=== PATIENT | female | born 1975 | race Caucasian/White ===

== ENCOUNTER 2022-03-28 15:30 | Outpatient (RCR) | payer OTHER, SELFPAY | END 2022-05-14 13:46 | disposition home or self-care (01) | PROVIDERS: PCP Family Medicine; Visit Provider Orthopaedic Surgery Sports Medicine | DX: M17.12 Unilateral primary osteoarthritis, left knee (principal); Z51.89 Encounter for other specified aftercare | CPT/HCPCS: 97110; 97112; 97116; 97162 ==

== ENCOUNTER 2023-03-03 14:10 | Emergency (ER) | payer BC, SELFPAY ==
[2023-03-03 14:36] VITALS: BP 114/76; PULSE 82; RESP 16; TEMP 36.2; O2SAT 98; BMI 41.2
[2023-03-03 15:19] LABS: Appearance Urine Clear (Clear); Bilirubin Urine Negative (Negative); Blood Urine Trace-lysed (Negative); Color Urine Yellow (Yellow); Glucose Urine Negative (Negative); Ketones Urine Negative (Negative); Leukocyte Esterase Urine Negative (Negative); Nitrite Urine Negative (Negative); Protein Urine Negative (Negative); Specific Gravity Urine <= 1.005 (1.000-1.030); Urobilinogen Urine 0.2 (0.2-1.0)
[2023-03-03 15:29] LABS: RBC Urine 0-2 (0-2); WBC Urine 0-2 (0-5)
--- NOTE | 2023-03-03 16:15 | ED_ITS ---
HPI - General Adult General Date Seen: 03/03/23 Chief complaint: Urogenital Problems, Female Stated complaint: UTI Time Seen by Provider: 03/03/23 15:51 Source: patient Mode of arrival: ambulatory Limitations: no limitations History of Present Illness HPI narrative: Patient is a 48-year-old who presents with a couple of days of mid lower back pain. She says that she can barely go from sitting to standing because it is painful to move. She denies radiating pain. She says this has happened ?5 or 6 times before and it has always been a bladder infection. She denies any urinary symptoms such as dysuria, frequency, urgency, however she says in the past that she has never had those symptoms either. She says that she has been cared for here when she has had these symptoms, she brought up a previous visit where she had an ovarian cyst, back pain, and was told she had a UTI. However review of that note shows that she presented with abdominal pain, she did have a 3.5 cm ovarian cyst but also had an incidentally diagnosed pneumonia which was treated. There was no evidence of UTI. In fact, I do not see any previous urine cultures here in our system. She denies fevers or chills. She has been taking ibuprofen and Tylenol but says they do not help. She does have a history of fibromyalgia as well as previous controlled substance contract. In trying to review her records on the [place] prescription database, I am not able to find her. Related Data Home Medications Medication Instructions Recorded Confirmed albuterol sulfate 90 mcg/actuation 2 inhalation PRN 01/29/22 01/29/22 aerosol inhaler bupropion HCl 150 mg 24 hr tablet, 150 mg PO DAILY 01/29/22 01/29/22 extended release omeprazole 20 mg capsule,delayed 20 mg PO QDAY 01/29/22 01/29/22 release trazodone 50 mg tablet 50 mg PO .Bedtime 01/29/22 01/29/22 tretinoin 0.025 % topical cream 1 applic topical ONCE 01/29/22 01/29/22 venlafaxine 75 mg capsule,extended 3 mg PO DAILY 01/29/22 01/29/22 release 24 hr fluticasone propionate 115 g inhalation 01/31/22 01/31/22 mcg-salmeterol 21 mcg/actuation HFA inhaler (Advair HFA) levocetirizine 5 mg tablet 5 mg PO QDAY 01/31/22 01/31/22 mupirocin 2 % topical ointment g topical 01/31/22 01/31/22 pantoprazole 40 mg tablet,delayed tab PO 01/31/22 01/31/22 release sucralfate 1 gram tablet 1 g PO 01/31/22 01/31/22 Previous Rx's Medication Instructions Recorded lidocaine 5 % topical patch 1 patch topical DAILY #15 ea 03/03/23 Allergies Allergy/AdvReac Type Severity Reaction Status Date / Time Erythromycin Allergy Intermediate GI upset Uncoded 01/31/22 08:39 Penicillin Allergy Intermediate Hives Uncoded 01/31/22 08:39 Sulfamethoxazole / Allergy Intermediate pain Uncoded 01/31/22 08:39 trimethoprim symptoms Review of Systems Status of ROS: Reports: 10 or more systems reviewed and unremarkable except as noted in History and below [facility] Medical History Skin problem ?L98.9 - Disorder of the skin and subcutaneous tissue, unspecified (ICD-10) Anxiety ?F41.9 - Anxiety disorder, unspecified (ICD-10) Depression ?F32.A - Depression, unspecified (ICD-10) Asthma ?J45.909 - Unspecified asthma, uncomplicated (ICD-10) GERD (gastroesophageal reflux disease) ?K21.9 - Gastro-esophageal reflux disease without esophagitis (ICD-10) Shortness of breath ?R06.02 - Shortness of breath (ICD-10) Pain in pelvis ?R10.2 - Pelvic and perineal pain (ICD-10) Encounter for pre-operative examination ?Z01.818 - Encounter for other preprocedural examination (ICD-10) Encounter for postoperative care ?Z48.89 - Encounter for other specified surgical aftercare (ICD-10) Acute bronchospasm ?J98.01 - Acute bronchospasm (ICD-10) Abdominal pain ?R10.9 - Unspecified abdominal pain (ICD-10) Surgical History Hx of LASIK ?Z98.890 - Other specified postprocedural states (ICD-10) History of cholecystectomy (03/06/16) ?Z90.49 - Acquired absence of other specified parts of digestive tract (ICD- 10) Social History Smoking Status: Former smoker Do you use any of these nicotine containing products: None Second hand tobacco smoke exposure: No How often do you have a drink containing alcohol: never AUDIT-C Alcohol total score: 0 Non-prescribed substance use: denies use Exam Narrative: Exam Narrative: Vital signs as noted above. In general, an alert, nontoxic woman. Head: Normocephalic, atraumatic. Eyes: Pupils are equal reactive. Extraocular movements are full. Conjunctivae are normal. ENT: Mucous membranes are moist. Neck: Supple without lymphadenopathy. Heart: Regular rate and rhythm. No murmur or rub. Lungs: Clear bilaterally. No increased work of breathing, crackles or wheezes. Abdomen: Soft and nontender. Exam limited by body habitus. Back: She has tenderness to palpation over the lumbar region diffusely. She does not have CVA tenderness. Extremities: Well perfused. Pulses intact. Neurologic: Patient is alert and oriented to person and place. Speech is fluent. Face is symmetric. Moves all extremities equally. Affect: Anxious. Skin: Warm and dry. Well perfused. Const: Vital Signs, click to edit/add: Vital Signs - 24 hr 03/03/23 14:36 Temperature 97.1 F L Pulse Rate [Right Pulse Oximeter] 82 Respiratory Rate 16 Blood Pressure [Ri ght Upper Arm] 114/76 Pulse Oximetry 98 Oxygen Delivery Me thod Room Air Documenting provider has reviewed patient's vital signs: yes Course Course Hospital Course: A urinalysis done here is negative, no nitrites, 0-2 red cells and 0-2 white cells, no bacteria. I have reviewed with her that her pain seems more consistent with mechanical back pain, that a bladder infection would not typically cause isolated back pain that is worsened with movement, particularly in the absence of any urinary symptoms, and with a completely negative UA I am hesitant to attribute her symptoms to urinary tract infection. I did offer to do a little more workup to see if there is any other evidence of infection. Pain is not an area that would be consistent with pyelonephritis. She has not had any systemic complaints, so my suspicion for an infectious cause is relatively low, but will go ahead and check some labs, give some Toradol and 0.5 mg of Ativan. Patient feels improved. Her labs are entirely normal, white blood cell count is 6.3 with a normal diff, metabolic panel is normal, CRP is less than 0.5 and lactate is 0.8. I have reassured her I do not see any evidence of infections as a cause for her symptoms. I will send a urine culture for her, but reviewed that I think UTI is again very unlikely cause for her symptoms. I prescribed some Flexeril, lidocaine patches in addition to her the ibuprofen and Tylenol at I recommended. If not improving over the next week or so, follow-up with primary care. If at any time she feels acutely worse, develops new symptoms such as fever, vomiting, weakness or numbness etcetera, return to the emergency department. Vital Signs Vital signs: Initial Vital Signs Temperature 97.1 F L 03/03/23 14:36 Temperature Source Temporal Artery Scan 03/03/23 14:36 Pulse Rate 82 03/03/23 14:36 Pulse Rhythm Regular 03/03/23 14:36 Respiratory Rate 16 03/03/23 14:36 Blood Pressure 114/76 03/03/23 14:36 Blood Pressure Mean 88 03/03/23 14:36 Blood Pressure Position Sitting 03/03/23 14:36 Pulse Oximetry 98 03/03/23 14:36 Oxygen Delivery Method Room Air 03/03/23 14:36 Vital Signs Temperature 97.1 F L 03/03/23 14:36 Pulse Rate 82 03/03/23 14:36 Respiratory Rate 16 03/03/23 14:36 Blood Pressure 114/76 03/03/23 14:36 Pulse Oximetry 98 03/03/23 14:36 Oxygen Delivery Method Room Air 03/03/23 14:36 Temperature 97.1 F L 03/03/23 14:36 Pulse Rate 82 03/03/23 14:36 Respiratory Rate 16 03/03/23 14:36 Blood Pressure 114/76 03/03/23 14:36 Pulse Oximetry 98 03/03/23 14:36 Oxygen Delivery Method Room Air 03/03/23 14:36 Medical Decision Making Lab Data Labs: Lab Results 03/03/23 03/03/23 Range/Units 15:05 16:36 WBC 6.35 (4.50-11.00) K/uL RBC 4.77 (4.00-5.20) m/uL Hgb 12.3 (12.0-16.0) gm/dL Hct 39.3 (33.0-51.0) % MCV 82 (80-100) fL MCH 26 (26-34) pg MCHC 31 L (32-36) gm/dL RDW Coeff of Latricia 14.6 (11.5-15.5) % Plt Count 304 (140-440) K/uL Neut % (Auto) 51.1 (42.0-72.0) % Lymph % (Auto) 37.0 (20-44) % [place] % (Auto) 8.2 (0.0-11.0) % Eos % (Auto) 2.4 (0.0-7.0) % Baso % (Auto) 1.1 (0.0-3.0) % Neut # (Auto) 3.25 (1.7-7.0) K/uL Lymph # (Auto) 2.35 (0.90-2.90) K/uL [place] # (Auto) 0.50 (0.00-0.90) K/UL Eos # (Auto) 0.15 (0.00-0.50) K/uL Baso # (Auto) 0.07 (0.00-0.30) K/uL Abs Immat Gran (auto) 0.01 (0.00-0.30) K/uL Imm/Tot Granulo (auto) 0.2 % Sodium 135 (135-149) mmol/L Potassium 4.4 (3.6-5.1) mmol/L Chloride 106 (96-114) mmol/L Carbon Dioxide 22 (20-32) mmol/L Anion Gap 7 (7-15) mEq/L BUN 10 (5-24) mg/dL Creatinine 0.8 (0.5-1.5) mg/dL Estimated Creat Clear 75.07 Estimated GFR 91 ml/min Glucose 74 (60-115) mg/dL Lactate 0.8 (0.5-1.9) mmol/L Calcium 8.2 L (8.4-10.6) mg/dL C-Reactive Protein < 0.5 L (0.5-1.0) mg/dL Urine Color Yellow (Yellow) Urine Appearance Clear (Clear) Urine pH 6.0 (5.0-8.5) Ur Specific [place] <= 1.005 (1.000-1.030) Urine Protein Negative (Negative) Urine Glucose (UA) Negative (Negative) Urine Ketones Negative (Negative) Urine Blood Trace-lysed A (Negative) Urine Nitrite Negative (Negative) Urine Bilirubin Negative (Negative) Urine Urobilinogen 0.2 (0.2-1.0) Ur Leukocyte Esterase Negative (Negative) Urine RBC 0-2 (0-2) Urine WBC 0-2 (0-5) Ur Squamous Epith Cells None (None-Few) Urine Bacteria None (None) Discharge Plan Discharge Clinical Impression: Low back pain Patient Disposition: Home, Self-Care Condition: Stable Instructions: Acute Low Back Pain (ED) Additional Instructions: Labs today are all reassuring and do not suggest an infectious cause for your symptoms. I will request a culture of your urine we will call you if there is anything that needs to be treated. In the meantime, I would recommend a combination of ibuprofen 400 mg plus Tylenol 1000 mg 3 times daily with food. You can use a muscle relaxer as needed. Ice may also be helpful. I also prescribed some lidocaine patches which you can apply at the area of discomfort on your back. If you are worsening, develops new symptoms such as fever vomiting, return to the emergency department. Otherwise, follow up with primary care if not gradually improving over the next week or so. Prescriptions: New lidocaine 5 % adhesive patch,medicated 1 patch topical DAILY Qty: 15 0RF Rx Instructions: leave on most painful area for up to 12 hrs No Action bupropion HCl 150 mg tablet extended release 24 hr 150 mg PO DAILY trazodone 50 mg tablet 50 mg PO .Bedtime venlafaxine 75 mg capsule,extended release 24hr 3 mg PO DAILY tretinoin 0.025 % cream 1 applic topical ONCE omeprazole 20 mg capsule,delayed release(DR/EC) 20 mg PO QDAY albuterol sulfate 90 mcg/actuation HFA aerosol inhaler 2 inhalation PRN Advair HFA 115-21 mcg/actuation HFA aerosol inhaler inhalation levocetirizine 5 mg tablet 5 mg PO QDAY pantoprazole 40 mg tablet,delayed release (DR/EC) PO mupirocin 2 % ointment topical Patient Comments: APPLY TOPICALLY TO AFFECTED AREA(S) 3 TIMES DAILY FOR 5 DAYS. sucralfate 1 gram tablet 1 g PO Follow Up/Referrals: Faimlia Schultz MD [Primary Care Provider] - Stand Alone Forms: [employer] Info Instructions
[2023-03-03] MEDS: KETOROLAC 30 MG/ML inj IM (16:35)
[2023-03-03] MEDS: LORazepam 0.5 MG TABLET PO (16:36)
[2023-03-03 16:50] LABS: Lactate Sepsis w/Reflex* 0.8 mmol/L (0.5-1.9)
[2023-03-03 17:05] LABS: Basophils Absolute Auto 0.07 K/uL (0.00-0.30); Basophils Percent Auto 1.1 % (0.0-3.0); Eosinophils Absolute Auto 0.15 K/uL (0.00-0.50); Eosinophils Percent Auto 2.4 % (0.0-7.0); Hematocrit 39.3 % (33.0-51.0); Hemoglobin* 12.3 gm/dL (12.0-16.0); Immature Granulocytes Abs Auto 0.01 K/uL (0.00-0.30); Immature Granulocytes Pct Auto 0.2 %; Lymphocytes Absolute Auto 2.35 K/uL (0.90-2.90); Mean Corpuscular HGB Conc 31 gm/dL (32-36); Mean Corpuscular Hemoglobin 26 pg (26-34); Mean Corpuscular Volume 82 fL (80-100); Monocytes Percent Auto 8.2 % (0.0-11.0); Neutrophils Absolute Auto 3.25 K/uL (1.7-7.0); Neutrophils Percent Auto 51.1 % (42.0-72.0); Platelet Count* 304 K/uL (140-440); RDW Coefficient of Variation % 14.6 % (11.5-15.5); Red Blood Count 4.77 m/uL (4.00-5.20); White Blood Count* 6.35 K/uL (4.50-11.00)
[2023-03-03 17:18] LABS: Chloride* 106 mmol/L (96-114); Potassium* 4.4 mmol/L (3.6-5.1); Sodium* 135 mmol/L (135-149)
[2023-03-03 17:19] LABS: Slide Review Reflex No
[2023-03-03 17:20] LABS: Creatinine* 0.8 mg/dL (0.5-1.5); Est. Creatinine Clearance* 75.07; Estimated Glomerular Filt Rate 91 ml/min
[2023-03-03 17:21] LABS: Anion Gap 7 mEq/L (7-15); Blood Urea Nitrogen* 10 mg/dL (5-24); Calcium* 8.2 mg/dL (8.4-10.6); Carbon Dioxide* 22 mmol/L (20-32); Glucose* 74 mg/dL (60-115)
[2023-03-03 17:25] LABS: C Reactive Protein* < 0.5 mg/dL (0.5-1.0)
== END 2023-03-03 18:14 | disposition home or self-care (01) ==
PROVIDERS: Emergency Provider Emergency Medicine; PCP Family Medicine
DX: M54.50 Low back pain, unspecified (principal)
CPT/HCPCS: 36415; 80048; 81003; 81015; 83605; 85025; 86140; 96372; 99284; A9270; J1885

== ENCOUNTER 2023-04-30 06:02 | Day surgery (SDC) | payer BC, SELFPAY ==
[2023-04-30] VITALS (9 sets, daily range): BP systolic 101–148; BP diastolic 66–81; PULSE 72–90; RESP 12–20; TEMP 36.2–36.3; O2SAT 93–100; BMI 41.7
[2023-04-30] MEDS: LACTATED RINGERS 1000 ML 1,000 ML 100 ML IV (06:30)
[2023-04-30] MEDS: SODIUM CHLORIDE 0.9 % (FLUSH) 10 ML SYRINGE IVF (06:30)
[2023-04-30 06:54] LABS: Hemoglobin* 11.8 gm/dL (12.0-16.0)
[2023-04-30 06:55] LABS: Ur HCG Qualitative* Negative (Negative)
[2023-04-30 07:09] LABS: Creatinine* 0.8 mg/dL (0.5-1.5); Est. Creatinine Clearance* 75.07; Estimated Glomerular Filt Rate 91 ml/min
[2023-04-30] MEDS: LIDOCAINE 1% MDV 3 ML INJECTION (07:15)
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
--- NOTE | 2023-04-30 08:46 | W.ANESCHARGE ---
Anesthesia Charges Start Date/Time Anesthesia Start Date: 04/30/23 Anesthesia Start Time: 07:22 Stop Date/Time Anesthesia Stop Date: 04/30/23 Anesthesia Stop Time: 08:27
== END 2023-04-30 10:50 | disposition home or self-care (01) ==
PROVIDERS: PCP Family Medicine; Visit Provider Obstetrics & Gynecology
PROC: (CPT 56740; principal; 2023-04-30 07:15)
DX: N84.3 Polyp of vulva (principal)
CPT/HCPCS: 11426; 00940; 36415; 81025; 82565; 85018; 88304; J1100; J1200; J1885; J2250; J2405; J2704; J3010; J7120

== ENCOUNTER 2023-08-20 07:58 | Outpatient (CLI) | payer BC, SELFPAY ==
--- NOTE | 2023-08-20 08:15 | CRLHL7_ITS ---
For Patients: As a result of the Century Cures Act, medical imaging exams and procedure reports are released immediately into your electronic medical record. You may view this report before your referring provider. If you have questions, please contact your health care provider. BILATERAL SCREENING MAMMOGRAM WITH COMPUTER-AIDED DETECTION AND TOMOSYNTHESIS TECHNIQUE: CC and MLO views were obtained. These mammographic images have been obtained using full-field digital technique. These mammographic images were interpreted with the benefit of computer-aided detection. Breast Tomosynthesis was used in this interpretation. COMPARISON FILM: Baseline. FINDINGS: There are scattered areas of fibroglandular density IMPRESSION: There is no radiographic evidence for malignancy. ASSESSMENT: BI-RADS Category 1: Negative RECOMMENDATION: Routine screening mammogram in 1 year. A lay language report of this examination will be provided to the patient. Herve Banks M.D. Diagnostic Radiologist [email or web address] Transcribed: 4:38 [email or web address] gordon/Dictated by: Herve Banks MD @ 08/20/2023 11:40:00 AM (Electronically Signed)
== END 2023-08-20 07:59 | disposition home or self-care (01) ==
LOC: MAMMO 07:59
PROVIDERS: PCP Family Medicine; Visit Provider Obstetrics & Gynecology
DX: Z12.31 Encounter for screening mammogram for malignant neoplasm of breast (principal)
CPT/HCPCS: 77063; 77067

== ENCOUNTER 2024-03-28 20:01 | Outpatient (CLI) | payer BC, SELFPAY | END 2024-03-28 20:02 | disposition home or self-care (01) | LOC: AMB 03-30 01:49 | PROVIDERS: PCP Family Medicine; Visit Provider Emergency Medicine | DX: S49.91XA Unspecified injury of right shoulder and upper arm, initial encounter (principal); R20.0 Anesthesia of skin; W01.0XXA Fall on same level from slipping, tripping and stumbling without subsequent striking against object, initial encounter; Y92.009 Unspecified place in unspecified non-institutional (private) residence as the place of occurrence of the external cause | CPT/HCPCS: A0425; A0427 ==

== ENCOUNTER 2024-03-28 20:49 | Observation (INO) | payer BC, SELFPAY ==
[2024-03-28 20:55] VITALS: BP 122/62; PULSE 79; RESP 16; TEMP 36.4; O2SAT 94; BMI 42.9
[2024-03-28 21:15] VITALS: BP 118/77; PULSE 81; RESP 18; TEMP 35.8; O2SAT 96
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
--- NOTE | 2024-03-28 21:17 | CRLHL7_ITS ---
For Patients: As a result of the Cures Act, medical imaging exams and procedure reports are released immediately into your electronic medical record. You may view this report before your referring provider. If you have questions, please contact your health care provider. INDICATION: Shoulder pain from fall TECHNIQUE: Shoulder radiograph 2 views right COMPARISON: None FINDINGS: Bone: There is a comminuted fracture of the humeral head and surgical neck present with a displaced and rotated fracture fragment measuring 4 cm. Joint: The glenohumeral joint is unremarkable. The acromioclavicular joint is unremarkable. Soft tissue: Unremarkable. The visualized hemithorax is unremarkable in appearance. No radiopaque foreign bodies are seen. IMPRESSION: 1. There is a comminuted fracture of the humeral head and surgical neck present with a displaced and rotated fracture fragment measuring 4 cm. Dictated by Destin Nielson MD @ 03/28/2024 10:47:25 PM Dictated by: Destin Nielson MD @ 03/28/2024 22:47:28 (Electronically Signed)
[2024-03-28] MEDS: ONDANSETRON 2 MG/ML inj 4 MG IVP (21:30)
[2024-03-28] MEDS: HYDROmorphone 0.5 mg/0.5 ml inj 1 MG IVP (21:30)
[2024-03-28 21:45] VITALS: BP 114/72; PULSE 79; RESP 16; O2SAT 96
[2024-03-28 22:00] VITALS: BP 126/81; PULSE 88; RESP 16; TEMP 35.8; O2SAT 96
[2024-03-28] MEDS: KETAMINE HCL 100 MG/ML inj 20 MG IVP (22:55)
[2024-03-28 23:00] VITALS: BP 112/73; PULSE 75; RESP 16; O2SAT 97
--- NOTE | 2024-03-28 23:11 | PC.NURSE ---
pt vomiting, I dont' like this trip. Tearful and anxious
[2024-03-28] MEDS: LORazepam 2 MG/ML inj 1 MG IVP (23:45)
[2024-03-29 00:25] VITALS: RESP 16; O2SAT 92
[2024-03-29] MEDS: MORPHINE 2 MG/ML inj IVP ×2 (00:45→10:40)
[2024-03-29 00:47] VITALS: O2SAT 92
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
[2024-03-29 00:52] VITALS: BP 124/110; PULSE 78; RESP 16; TEMP 36.5; O2SAT 92; BMI 46.3
[2024-03-29] MEDS: LORazepam 0.5 MG TABLET PO ×2 (01:08→07:01)
[2024-03-29] MEDS: OXYCODONE 5 MG TABLET PO ×3 (02:13→09:49)
[2024-03-29] MEDS: SUCRALFATE 1 GM TABLET PO ×2 (02:15→06:24)
[2024-03-29 02:17] VITALS: BP 138/71; PULSE 81; RESP 16; TEMP 36.6; O2SAT 97
--- NOTE | 2024-03-29 04:33 | PC.NURSE ---
Shift note: Pt arrived at the unit from ED on ED bed. Pt was crying at the time of arrival to the unit, refused to get off bed to be weighed on the standing scale due to pain in the right fractured elbow. However, pt was conscious, alert.and oriented. Right arm was secured in a sling. MD informed of the pain level and ordered IV Morphine 2mg stat. Pt refused assessment initially but later accepted. Pt confirmed mild tingling sensation and numbness in the right fingers. weak radial pulse recorded. Diastolic Bp was elevated on admission but fell back to normal at 0300. O2 >90% on RA. Pt on continuous O2 monitoring.
--- NOTE | 2024-03-29 06:19 | CRLHL7_ITS ---
For Patients: As a result of the Century Cures Act, medical imaging exams and procedure reports are released immediately into your electronic medical record. You may view this report before your referring provider. If you have questions, please contact your health care provider. INDICATION: Fracture. Fall. TECHNIQUE: Noncontrast CT of the right humerus. COMPARISON: Shoulder radiographs from 03/28/2024. FINDINGS: There is a severely comminuted acute displaced fracture of the right proximal humerus. Fracture demonstrates mixed surgical and anatomic neck involvement, involves the lesser tuberosity and greater tuberosity. The fragment containing the humeral head articular surface is anteriorly inferiorly dislocated with over 3 centimeters of displacement. The humeral head is actually displaced into the upper axilla where it likely abuts and displaces the brachial plexus. Hemorrhage is present within the axilla and adjacent to the plexus. There is 2 centimeters displacement along the posterior aspect of the metaphysis. 1.2 centimeter displacement at the level of the greater tuberosity. Greater than 1 cm displacement along the inferior aspect of the lesser tuberosity. No acute glenoid fracture. No AC joint malalignment. Mild AC joint degenerative arthrosis. No significant atrophy of rotator cuff musculature. Dependent atelectasis within the right lung. IMPRESSION: 1. Comminuted acute displaced fracture of the right proximal humerus with mixed surgical and anatomic neck involvement along with involvement of the lesser and greater tuberosities. Fragment containing the humeral head articular surface is anteriorly inferiorly dislocated with over 3 cm displacement. It is displaced into the upper axilla where it likely abuts and displaces the brachial plexus. Hemorrhage is present within the axilla adjacent to the plexus. 2. No glenoid fracture. 4. No atrophy of rotator cuff musculature. Please note that all CT scans at this facility use dose modulation, iterative reconstruction, and/or weight-based dosing when appropriate to reduce radiation dose to as low as reasonably achievable. Dictated by Tim Han MD @ 03/29/2024 7:45:54 AM (Electronically Signed)
[2024-03-29 08:00] VITALS: BP 148/74; PULSE 90; RESP 16; TEMP 36.8; O2SAT 94
--- NOTE | 2024-03-29 09:09 | REH.OT ---
PT/OT orders for consult were received. Plan for Pt. to transfer to [facility] for Sx. Therapy orders will be cancelled.
[2024-03-29 09:34] LABS: INR 1.03 (0.91-1.10); Prothrombin Time 14.1 Seconds
[2024-03-29 09:47] LABS: Basophils Percent Auto 0.2 % (0.0-3.0); Eosinophils Percent Auto 0.4 % (0.0-7.0); Hematocrit 38.8 % (33.0-51.0); Hemoglobin* 12.8 gm/dL (12.0-16.0); Immature Granulocytes Pct Auto 0.2 %; Lymphocytes Percent Auto 8.9 % (20-44); Mean Corpuscular HGB Conc 33 gm/dL (32-36); Mean Corpuscular Hemoglobin 30 pg (26-34); Mean Corpuscular Volume 90 fL (80-100); Monocytes Percent Auto 7.2 % (0.0-11.0); Neutrophils Percent Auto 83.1 % (42.0-72.0); Platelet Count* 262 K/uL (140-440); RDW Coefficient of Variation % 12.8 % (11.5-15.5)
[2024-03-29 09:48] LABS: Slide Review Reflex No
[2024-03-29] MEDS: buPROPion XL 150 MG TABLET 450 MG PO (09:48)
[2024-03-29] MEDS: PANTOPRAZOLE 40 MG TABLET PO (09:48)
[2024-03-29] MEDS: ACETAMINOPHEN 325 MG TABLET 975 MG PO (09:49)
[2024-03-29] MEDS: SODIUM CHLORIDE 0.9 % (FLUSH) 10 ML SYRINGE 5 ML IVF (09:50)
[2024-03-29 10:10] LABS: Albumin* 3.8 g/dL (3.3-5.0); Chloride* 103 mmol/L (96-114); Sodium* 133 mmol/L (135-149)
[2024-03-29 10:11] LABS: Potassium* 3.9 mmol/L (3.6-5.1)
[2024-03-29 10:13] LABS: Alkaline Phosphatase* 73 U/L (40-150); Anion Gap 9 mEq/L (7-15); Aspartate Amino Transferase* 25 U/L (12-35); Bilirubin Total* 0.7 mg/dL (0.1-1.5); Blood Urea Nitrogen* 10 mg/dL (5-24); Carbon Dioxide* 21 mmol/L (20-32); Creatinine* 0.6 mg/dL (0.5-1.5); Est. Creatinine Clearance* 99.02; Estimated Glomerular Filt Rate 111 ml/min; Total Protein* 6.5 g/dL (6.0-8.3)
[2024-03-29 10:14] LABS: Alanine Aminotransferase* 11 U/L (4-35); Calcium* 8.3 mg/dL (8.4-10.6); Glucose* 92 mg/dL (60-115)
--- NOTE | 2024-03-29 10:15 | PM.DS1 ---
DS: Providers Provider Date Seen: 03/29/24 Date of admission: 03/29/24 00:00 Primary care physician: Familia Schultz MD Admitting Clinician: Carolina Suárez MD Consults: 03/29/24 00:37 Consult to [employer] [CONS] Routine Comment: Reason for Consult:: Social Service Consult 03/29/24 00:47 Consult to Physician [CONS] Routine Comment: Consulting Provider: Chloe Ingram Has provider been notified: Yes Attending Physician on discharge: Camryn Malave [facility], PA-C Date of Discharge: 03/29/24 DS: Diagnosis Discharge Diagnosis (1) Closed fracture of proximal end of right humerus: Status: Acute Problem details: Admited for observation, pain control. Surgery consulted, advising transfer for necessary intervention. CT humerus obtained showing1. Comminuted acute displaced fracture of the right proximal humerus with mixed surgical and anatomic neck involvement along with involvement of the lesser and greater tuberosities. Fragment containing the humeral head articular surface is anteriorly inferiorly dislocated with over 3 cm displacement. It is displaced into the upper axilla where it likely abuts and displaces the brachial plexus. Hemorrhage is present within the axilla adjacent to the plexus. 2. No glenoid fracture. 4. No atrophy of rotator cuff musculature. Discussed with Dr. Stout, [facility] Ortho, recommending CTA humerus, unable to obtain at this facility. Initiating emergent transfer to [facility] ED via ground EMS for further imaging and intervention. Excepting is Dr. Navarrete, [facility] ED. Patient has remained in a sling. Neurovascularly intact. Pain appropriately managed with narcotics. NPO. (2) Anxiety: Status: Chronic Problem details: Continue her home medications and have added lorazepam as above. DS: Summary Hospital Course Hospital Course: [age] year old female past medical history significant for PTSD, depression, asthma, chronic pain was admitted to the medical floor for further management right humeral fracture. Course of care and details as noted above. Patient is transferred to [facility] ED for further workup, Orthopedic surgery, potentially vascular surgery consult. Status at Discharge Overall status at discharge: patient is not back to baseline Time Spent with Patient Time attestation: Total time spent providing and/or coordinating discharge services: Exam Narrative: Exam Narrative: PHYSICAL EXAM General: Pleasant, conversant, NAD Cardiovascular: RRR Pulmonary: No dyspnea Extremities: RUE pulse intact, warm, anesthesiologist physician strength intact sensation intact Neurological: Alert, answering questions appropriately Skin: Warm, dry. Const: Vital Signs, click to edit/add: Vital Signs - 24 hr 03/28/24 20:55 03/28/24 21:15 03/28/24 21:45 Temperature 97.6 F 96.5 F L Pulse Rate [Left P ulse Oximeter] Pulse Rate [Pulse Oximeter] 79 81 79 Respiratory Rate 16 18 16 Blood Pressure [Le ft Arm] Blood Pressure [Le ft Forearm] 122/62 118/77 114/72 Pulse Oximetry 94 96 96 Oxygen Delivery Az thod Room Air Room Air Room Air 03/28/24 22:00 03/28/24 23:00 03/29/24 00:25 Temperature 96.4 F L Pulse Rate [Left P ulse Oximeter] Pulse Rate [Pulse Oximeter] 88 75 Respiratory Rate 16 16 16 Blood Pressure [Le ft Arm] Blood Pressure [Le ft Forearm] 126/81 112/73 Pulse Oximetry 96 97 92 Oxygen Delivery Az thod Room Air Room Air Room Air 03/29/24 00:47 03/29/24 00:52 03/29/24 02:17 Temperature 97.7 F 97.9 F Pulse Rate [Left P ulse Oximeter] 78 81 Pulse Rate [Pulse Oximeter] Respiratory Rate 16 16 Blood Pressure [Le ft Arm] 124/110 H 138/71 Blood Pressure [Le ft Forearm] Pulse Oximetry 92 92 97 Oxygen Delivery Az thod Room Air Room Air DS: Data Data Completed and Pending Labs on day of discharge: Labs from last 24 hours 03/29/24 03/29/24 09:36 09:10 WBC 12.90 H RBC 4.30 Hgb 12.8 Hct 38.8 MCV 90 MCH 30 MCHC 33 RDW Coeff of Latricia 12.8 Plt Count 262 Neut % (Auto) 83.1 H Lymph % (Auto) 8.9 L Tyler % (Auto) 7.2 Eos % (Auto) 0.4 Baso % (Auto) 0.2 Neut # (Auto) 10.70 H Lymph # (Auto) 1.10 Tyler # (Auto) 0.90 Eos # (Auto) 0.10 Baso # (Auto) 0.00 Abs Immat Gran (auto) 0.00 Imm/Tot Granulo (auto) 0.2 INR 1.03 Sodium 133 L Potassium 3.9 Chloride 103 Carbon Dioxide 21 Anion Gap 9 BUN 10 Creatinine 0.6 Estimated Creat Clear 99.02 Estimated GFR 111 Glucose 92 Calcium 8.3 L Total Bilirubin 0.7 AST 25 ALT 11 Alkaline Phosphatase 73 Total Protein 6.[address] humerus: Attestation: I have reviewed the pertinent imaging results. Radiologist's impression: There is a severely comminuted acute displaced fracture of the right proximal humerus. Fracture demonstrates mixed surgical and anatomic neck involvement, involves the lesser tuberosity and greater tuberosity. The fragment containing the humeral head articular surface is anteriorly inferiorly dislocated with over 3 centimeters of displacement. The humeral head is actually displaced into the upper axilla where it likely abuts and displaces the brachial plexus. Hemorrhage is present within the axilla and adjacent to the plexus. There is 2 centimeters displacement along the posterior aspect of the metaphysis. 1.2 centimeter displacement at the level of the greater tuberosity. Greater than 1 cm displacement along the inferior aspect of the lesser tuberosity. No acute glenoid fracture. No AC joint malalignment. Mild AC joint degenerative arthrosis. No significant atrophy of rotator cuff musculature. Dependent atelectasis within the right lung. IMPRESSION: 1. Comminuted acute displaced fracture of the right proximal humerus with mixed surgical and anatomic neck involvement along with involvement of the lesser and greater tuberosities. Fragment containing the humeral head articular surface is anteriorly inferiorly dislocated with over 3 cm displacement. It is displaced into the upper axilla where it likely abuts and displaces the brachial plexus. Hemorrhage is present within the axilla adjacent to the plexus. 2. No glenoid fracture. 4. No atrophy of rotator cuff musculature. Right shoulder: Attestation: I have reviewed the pertinent imaging results. Radiologist's impression: Bone: There is a comminuted fracture of the humeral head and surgical neck present with a displaced and rotated fracture fragment measuring 4 cm. Joint: The glenohumeral joint is unremarkable. The acromioclavicular joint is unremarkable. Soft tissue: Unremarkable. The visualized hemithorax is unremarkable in appearance. No radiopaque foreign bodies are seen. IMPRESSION: 1. There is a comminuted fracture of the humeral head and surgical neck present with a displaced and rotated fracture fragment measuring 4 cm. Discharge Plan Discharge Disposition: Xfer Acute Care Hospital Discharge Location: [facility] Date of Admission: 03/29/24 00:00 Attending Provider on Discharge: Camryn Malave Primary Care Provider: Familia Schultz Condition: Stable Discharge Orders: Transfer of Care to Other Hospital (ORDER); Ordered 03/29/24 Ordered By: Camryn Malave Discharge Comments: Needs emergent Oxygen: No Services not available here: Need for emergent CTA, Orthopedic, Vascular Surgery
[2024-03-29] MEDS: ONDANSETRON 2 MG/ML inj 4 MG IVP (10:41)
== END 2024-03-29 10:45 | disposition short-term general hospital (02) ==
LOC: ED 21:55 → MEDSURG 03-29 00:02
PROVIDERS: Physician Assistant; Admitting Provider Family Medicine; Emergency Provider Emergency Medicine; PCP Family Medicine; Visit Provider Family Medicine
DX: S42.201A Unspecified fracture of upper end of right humerus, initial encounter for closed fracture (principal); F41.9 Anxiety disorder, unspecified; W01.0XXA Fall on same level from slipping, tripping and stumbling without subsequent striking against object, initial encounter
CPT/HCPCS: 36415; 73030; 73200; 80053; 85025; 85610; 96374; 96375; 99283; 99285; A9270; G0378; J1170; J2060; J2270; J2405; J3490

== ENCOUNTER 2024-03-29 10:36 | Outpatient (CLI) | payer BC, SELFPAY | END 2024-03-29 10:37 | disposition home or self-care (01) | LOC: AMB 03-30 02:45 | PROVIDERS: PCP Family Medicine; Visit Provider Family Medicine | DX: S42.201A Unspecified fracture of upper end of right humerus, initial encounter for closed fracture (principal) | CPT/HCPCS: A0425; A0426 ==

== ENCOUNTER 2024-10-13 13:00 | Outpatient (RCR) | payer BC, SELFPAY | END 2025-02-10 23:59 | disposition home or self-care (01) | PROVIDERS: PCP Family Medicine; Visit Provider Orthopaedic Surgery | DX: Z47.89 Encounter for other orthopedic aftercare (principal); M25.511 Pain in right shoulder; Z51.89 Encounter for other specified aftercare | CPT/HCPCS: 97032; 97110; 97140; 97162 ==